=== PATIENT | male | born 1995 | race Caucasian/White ===

== ENCOUNTER 2016-11-02 14:35 | Emergency (ER) | payer BC, OTHER ==
[~2016-11-02] VITALS: Ht 185.4 cm; Wt 86.5 kg
[~2016-11-02 14:35] MED LIST: AMPH20TA2 PO
[2016-11-02 14:55] VITALS: Ht 185.4 cm; Wt 86.5 kg
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
[2016-11-02 16:45] LABS: ADD UMIC YES; URINE BILIRUBIN (Dip) NEGATIVE (NEGATIVE); URINE BLOOD (Dip) TRACE (NEGATIVE); URINE COLOR LT. YELLOW (YELLOW); URINE GLUCOSE (Dip) NEGATIVE (NEGATIVE); URINE KETONES (Dip) NEGATIVE (NEGATIVE); URINE LEUKOCYTE ESTERASE (Dip) NEGATIVE (NEGATIVE); URINE NITRITE (Dip) NEGATIVE (NEGATIVE); URINE TOTAL PROTEIN (Dip) NEGATIVE (NEGATIVE); URINE UROBILINOGEN (Dip) 0.2 E.U./dL (0.1-1.0)
[2016-11-02 16:59] LABS: SQUAMOUS EPITHELIAL CELL,UR RARE; URINE RBCS 0-2 /HPF (0)
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
[2016-11-02] MEDS ORDERED: HYDR-906 PO (19:23)
[2016-11-02] MEDS ORDERED: BACTDS PO (19:24)
[2016-11-02] MEDS ORDERED: IBUP-1542 PO (19:24)
[2016-11-02] MEDS ORDERED: ORPH100T PO (19:27)
[2016-11-02] MEDS ORDERED: CEPH-443 PO (19:33)
[2016-11-02 19:41] VITALS: BP 142/90; PULSE 78; RESP 16; TEMP 98.8
== END 2016-11-02 19:42 | disposition home or self-care (01) ==
LOC: FTE 14:35
DX: S62.314A Displaced fracture of base of fourth metacarpal bone, right hand, initial encounter for closed fracture (principal); S62.316A Displaced fracture of base of fifth metacarpal bone, right hand, initial encounter for closed fracture; S02.40DA Maxillary fracture, left side, initial encounter for closed fracture; S09.90XA Unspecified injury of head, initial encounter; R51 Headache; Y08.89XA Assault by other specified means, initial encounter
CPT/HCPCS: 70450; 70486; 70490; 81001; 81003

== ENCOUNTER 2018-09-26 04:16 | Emergency (ER) | END 2018-09-26 07:16 | disposition home or self-care (01) ==